=== PATIENT | male | born 1975 | race Caucasian/White ===

== ENCOUNTER 2021-10-17 18:00 | Inpatient (IN) | payer MEDICARE, OTHER ==
[~2021-10-17] VITALS: Ht 167.6 cm; Wt 68.0 kg
[2021-10-17 19:00] VITALS: BP 162/66
[2021-10-17] MEDS ORDERED: PIP/TAZO PER PHARMACY MC PRN (19:45)
--- NOTE | 2021-10-17 19:54 | HP ---
DATE OF SERVICE: 10/17/2021 ADMIT DATE: 10/17/2021 CHIEF COMPLAINT: Fevers and sepsis, UTI. HISTORY OF PRESENT ILLNESS: The patient is a pleasant 46-year-old male who has cerebral palsy. He presented to [facility] with weakness and fevers, was noted to have a UTI with sepsis. They called me. I accepted the patient as a transfer. He is now being examined on the medical floor where we are going to give him IV fluids and antibiotics. PAST MEDICAL HISTORY: Cerebral palsy, spasms and blind. ALLERGIES: None. FAMILY HISTORY: Diabetes. SOCIAL HISTORY: Does not drink, smoke or take drugs. I think he lives at home with his family. MEDICATIONS: Reviewed. Please see the MRAD. REVIEW OF SYSTEMS: GENERAL: He complains of fevers overnight. SKIN: No bruising, hair changes or rashes. EYES: No blurred, double or loss of vision. NOSE AND THROAT: No history of nosebleeds, hoarseness or sore throat. HEART: No history of palpitations, chest pain or shortness of breath on exertion. LUNGS: Denies cough, hemoptysis, wheezing or shortness of breath. GASTROINTESTINAL: Denies changes in appetite, nausea, vomiting, diarrhea or constipation. GENITOURINARY: No history of frequency, urgency, hesitancy or nocturia. NEUROLOGIC: Denies history of numbness, tingling, tremor or weakness. PSYCHIATRIC: No history of panic, anxiety or depression. ENDOCRINE: No history of heat or cold intolerance, polyuria or polydipsia. EXTREMITIES: Denies muscle weakness, joint pain, pain on walking or stiffness. PHYSICAL EXAMINATION: VITALS: Within normal limits and are stable. GENERAL: He is weak. HEENT: He is blind. EYES: Extraocular muscles are intact, pupils are equally round and reactive to light and accommodation MUSCULOSKELETAL: Well developed, well nourished, good range of motion ENDOCRINE: No thyromegaly was palpated LYMPHATICS: No cervical chain or axillary nodes were noted HEMATOPOIETIC: No bruising NECK: Supple, no JVD, no thyromegaly was noted. LUNGS: Clear to auscultation in all lung arthur without rhonchi or wheezing. HEART: RRR, S1, S2 present. Peripheral pulses intact, no obvious murmurs were noted. ABDOMEN: Soft, nontender. Positive bowel sounds no organomegaly, normal bowel sounds. EXTREMITIES: Without any cyanosis, clubbing, or edema. Pedal pulses intact, Homans sign is negative. NEUROLOGIC: He has some contractions consistent with his cerebral palsy. PSYCHIATRIC: Pleasant. SKIN: No ulcerations or rashes, good skin turgor, no jaundice. VASCULAR: Good capillary refill, neurovascular bundle appears to be intact. LABORATORY DATA: Pending. ASSESSMENT AND PLAN: Urinary tract infection with sepsis. The patient will be admitted. We will start IV Zosyn, IV fluids, home meds, DVT prophylaxis. Full code. GILDA DR: Maria A TID: [id number]
[2021-10-17] MEDS: ACETAMINOPHEN 500 MG TABLET PO PRN (21:27)
[2021-10-17] MEDS: PIPERACILLIN/TAZOBACTAM 3.375 GM in IV NORMAL SALINE 50ML 50 ML IV SCH (21:29)
[2021-10-17] MEDS: IV NORMAL SALINE 1000ML BAG 1,000 ML IV SCH (21:36)
[2021-10-17] MEDS ORDERED: ESOM40CA PO (23:02)
[2021-10-17] MEDS ORDERED: POLY17PO29 PO (23:02)
[2021-10-17] MEDS ORDERED: D-MA500C PO (23:02)
[2021-10-17] MEDS ORDERED: ACET325T21 PO (23:02)
[2021-10-17] MEDS ORDERED: DOCU100C28 PO (23:02)
[2021-10-17] MEDS ORDERED: OXYB-36 PO (23:02)
[2021-10-17] MEDS ORDERED: ONDA4TAB12 PO (23:02)
[2021-10-17] MEDS ORDERED: TOLN108P2 TP (23:02)
[2021-10-17] MEDS ORDERED: FURO20TA3 PO (23:02)
[2021-10-17] MEDS ORDERED: PRAV10TA2 PO (23:02)
[2021-10-17] MEDS ORDERED: LOPE2TAB27 PO (23:02)
[2021-10-17] MEDS ORDERED: PHEN32.45 PO (23:09)
[2021-10-17 23:16] VITALS: BP 123/72
[2021-10-18] MEDS: PIPERACILLIN/TAZOBACTAM 3.375 GM in IV NORMAL SALINE 50ML 50 ML IV SCH ×5 (01:41→23:50)
[2021-10-18 03:17] VITALS: BP 127/76
[2021-10-18 07:00] VITALS: BP 126/76
[2021-10-18 07:14] LABS: BASO % 0 % (0-3); EOS % 0 % (0-3); HEMATOCRIT 38.2 % (36.0-47.0); HEMOGLOBIN 12.3 g/dL (12.0-15.5); LYMPH # 1.1 x10^3/uL (1.0-4.8); LYMPH % 9 % (24-48); MEAN CORPUSCULAR HEMOGLOBIN 26 pg (25-35); MEAN CORPUSCULAR HGB CONC 32 g/dL (31-37); MEAN CORPUSCULAR VOLUME 82 fL (79-100); MONO # 1.5 x10^3/uL (0.0-1.1); MONO % 12 % (0-9); NEUT # 10.3 x10^3/uL (1.8-7.7); NEUT % 80 % (31-73); PLATELET COUNT 140 x10^3/uL (140-400); RED BLOOD COUNT 4.69 x10^6/uL (3.50-5.40); RED CELL DISTRIBUTION WIDTH 14.1 % (11.5-14.5); WHITE BLOOD COUNT 12.9 x10^3/uL (4.0-11.0)
[2021-10-18 07:25] LABS: CALCIUM 7.8 mg/dL (8.5-10.1); CREATININE 1.2 mg/dL (0.6-1.0); GFR 48.4; POTASSIUM 3.8 mmol/L (3.5-5.1)
[2021-10-18 10:54] VITALS: BP 131/86
--- NOTE | 2021-10-18 11:21 | PDOC ---
[facility] PROGRESS NOTE Date of Service DOS: DATE: 10/18/21 TIME: 11:18 Chief Complaint Chief Complaint Sepsis Acute UTI History of cerebral palsy History of urinary retention and Adams catheter in the past Continue broad-spectrum IV antibiotics Pending urine culture History of Present Illness History of Present Illness 46-year-old male who has cerebral palsy. He presented to [facility] with weakness and fevers, was noted to have a UTI with sepsis. He is now being examined on the medical floor where we are going to give him IV fluids and antibiotics. 10/18/2021 No acute events overnight. Patient seen and examined bedside. Patient states that he has history of urinary retention which requires a Adams. Sometimes straight cath. Patient had a fever overnight of 102. We will continue with broad-spectrum antibiotics and pending urine culture results. Patient's chart, labs, images were reviewed and discussed with RN Vitals/I&O Vitals/I&O: Vital Signs Date Time Temp Pulse Resp B/P (MAP) Pulse Ox O2 Delivery O2 Flow Rate FiO2 10/18/21 10:54 100.2 103 18 131/86 (101) 97 Room Air 100.2 I & O 10/17/21 10/17/21 10/18/21 15:00 23:00 07:00 Intake Total 50 ml 100 ml Balance 50 ml 100 ml Physical Exam General: Alert, Oriented X3, Cooperative Heart: Regular rate Lungs: Clear Abdomen: Normal bowel sounds Extremities: No clubbing Skin: No rashes Labs Labs: Laboratory Tests Test 10/18/21 06:30 White Blood Count 12.9 x10^3/uL (4.0-11.0) Red Blood Count 4.69 x10^6/uL (3.50-5.40) Hemoglobin 12.3 g/dL (12.0-15.5) Hematocrit 38.2 % (36.0-47.0) Mean Corpuscular Volume 82 fL (79-100) Mean Corpuscular Hemoglobin 26 pg (25-35) Mean Corpuscular Hemoglobin Concent 32 g/dL (31-37) Red Cell Distribution Width 14.1 % (11.5-14.5) Platelet Count 140 x10^3/uL (140-400) Neutrophils (%) (Auto) 80 % (31-73) Lymphocytes (%) (Auto) 9 % (24-48) Monocytes (%) (Auto) 12 % (0-9) Eosinophils (%) (Auto) 0 % (0-3) Basophils (%) (Auto) 0 % (0-3) Neutrophils # (Auto) 10.3 x10^3/uL (1.8-7.7) Lymphocytes # (Auto) 1.1 x10^3/uL (1.0-4.8) Monocytes # (Auto) 1.5 x10^3/uL (0.0-1.1) Eosinophils # (Auto) 0.0 x10^3/uL (0.0-0.7) Basophils # (Auto) 0.0 x10^3/uL (0.0-0.2) Sodium Level 143 mmol/L (136-145) Potassium Level 3.8 mmol/L (3.5-5.1) Chloride Level 108 mmol/L (98-107) Carbon Dioxide Level 23 mmol/L (21-32) Anion Gap 12 (6-14) Blood Urea Nitrogen 15 mg/dL (7-20) Creatinine 1.2 mg/dL (0.6-1.0) Estimated GFR (Cockcroft-Gault) 48.4 Glucose Level 92 mg/dL (70-99) Calcium Level 7.8 mg/dL (8.5-10.1) Comment Review of Relevant I have reviewed the following items fracisco (where applicable) has been applied. Medications: Current Medications Medications (Trade) Dose Ordered Sig/Latha Route PRN Reason Start Time Stop Time Status Last Admin Dose Admin Acetaminophen (Tylenol) 500 mg PRN Q6HRS PRN PO MILD PAIN / TEMP > 100.3'F 10/17/21 19:45 10/17/21 21:27 Sodium Chloride 1,000 ml @ 75 mls/hr [id number] IV 10/17/21 21:00 10/17/21 21:36 Piperacillin Sod/ Tazobactam Sod 3.375 gm/Sodium Chloride 50 ml @ 100 mls/hr Q6HRS IV 10/17/21 20:00 10/18/21 05:50 Justifications for Admission Other Justification SUNIL GLOVER MD Oct 18, 2021 11:21
[2021-10-18] MEDS: IV NORMAL SALINE 1000ML BAG 1,000 ML IV SCH (11:35)
[2021-10-18] MEDS: ACETAMINOPHEN 500 MG TABLET PO PRN ×2 (13:38→20:08)
[2021-10-18 15:00] VITALS: BP 140/89
[2021-10-18 19:35] VITALS: BP 139/85
[2021-10-18] MEDS: LACTOBACILLUS RHAMNOSUS GG 1 CAPSULE. PO SCH (20:55)
[2021-10-18 23:44] VITALS: BP 120/72
[2021-10-19] MEDS: IV NORMAL SALINE 1000ML BAG 1,000 ML IV SCH ×2 (02:00→13:00)
[2021-10-19 03:29] VITALS: BP 151/92
[2021-10-19] MEDS: ACETAMINOPHEN 500 MG TABLET PO PRN (05:33)
[2021-10-19] MEDS: PIPERACILLIN/TAZOBACTAM 3.375 GM in IV NORMAL SALINE 50ML 50 ML IV SCH ×4 (05:35→23:30)
[2021-10-19 06:44] LABS: CALCIUM 7.7 mg/dL (8.5-10.1); GFR 80.4; POTASSIUM 3.7 mmol/L (3.5-5.1)
[2021-10-19 06:54] LABS: BASO % 0 % (0-3); EOS # 0.1 x10^3/uL (0.0-0.7); EOS % 1 % (0-3); HEMATOCRIT 39.7 % (39.0-53.0); HEMOGLOBIN 12.8 g/dL (13.0-17.5); LYMPH # 0.6 x10^3/uL (1.0-4.8); LYMPH % 8 % (24-48); MEAN CORPUSCULAR HEMOGLOBIN 26 pg (25-35); MEAN CORPUSCULAR HGB CONC 32 g/dL (31-37); MEAN CORPUSCULAR VOLUME 81 fL (79-100); MONO # 0.8 x10^3/uL (0.0-1.1); MONO % 10 % (0-9); NEUT # 6.6 x10^3/uL (1.8-7.7); NEUT % 81 % (31-73); PLATELET COUNT 128 x10^3/uL (140-400); WHITE BLOOD COUNT 8.1 x10^3/uL (4.0-11.0)
[2021-10-19 07:00] VITALS: BP 150/85
[2021-10-19] MEDS: LACTOBACILLUS RHAMNOSUS GG 1 CAPSULE. PO SCH ×2 (08:42→20:47)
[2021-10-19 11:00] VITALS: BP 144/72
--- NOTE | 2021-10-19 12:41 | PDOC ---
[facility] PROGRESS NOTE Date of Service DOS: DATE: 10/19/21 TIME: 12:40 Chief Complaint Chief Complaint Sepsis Acute UTI History of cerebral palsy History of urinary retention and Adams catheter in the past Continue broad-spectrum IV antibiotics Pending urine culture History of Present Illness History of Present Illness 46-year-old male who has cerebral palsy. He presented to [facility] with weakness and fevers, was noted to have a UTI with sepsis. He is now being examined on the medical floor where we are going to give him IV fluids and antibiotics. 10/18/2021 No acute events overnight. Patient seen and examined bedside. Patient states that he has history of urinary retention which requires a Adams. Sometimes straight cath. Patient had a fever overnight of 102. We will continue with broad-spectrum antibiotics and pending urine culture results. Patient's chart, labs, images were reviewed and discussed with RN 10/19/2021 No acute events overnight. Patient really wants to go home. Patient seen e xamined bedside. Adams placed with 400 urine output. Fever 100 point 3 in the afternoon yesterday. Pending urine cultures. Continue with IV antibiotics. Patient's chart, labs, images were reviewed and discussed with RN Vitals/I&O Vitals/I&O: Vital Signs Date Time Temp Pulse Resp B/P (MAP) Pulse Ox O2 Delivery O2 Flow Rate FiO2 10/19/21 08:00 Room Air 10/19/21 07:00 99.0 109 20 150/85 (106) 96 99.0 I & O 10/18/21 10/18/21 10/19/21 15:00 23:00 07:00 Intake Total 1025 ml 50 ml 1460 ml Output Total 550 ml Balance 1025 ml 50 ml 910 ml Physical Exam General: Alert, Oriented X3, Cooperative Heart: Regular rate Lungs: Clear Abdomen: Normal bowel sounds Extremities: No clubbing Skin: No rashes Labs Labs: Laboratory Tests Test 10/19/21 06:05 White Blood Count 8.1 x10^3/uL (4.0-11.0) Red Blood Count 4.90 x10^6/uL (4.30-5.70) Hemoglobin 12.8 g/dL (13.0-17.5) Hematocrit 39.7 % (39.0-53.0) Mean Corpuscular Volume 81 fL (79-100) Mean Corpuscular Hemoglobin 26 pg (25-35) Mean Corpuscular Hemoglobin Concent 32 g/dL (31-37) Red Cell Distribution Width 14.0 % (11.5-14.5) Platelet Count 128 x10^3/uL (140-400) Neutrophils (%) (Auto) 81 % (31-73) Lymphocytes (%) (Auto) 8 % (24-48) Monocytes (%) (Auto) 10 % (0-9) Eosinophils (%) (Auto) 1 % (0-3) Basophils (%) (Auto) 0 % (0-3) Neutrophils # (Auto) 6.6 x10^3/uL (1.8-7.7) Lymphocytes # (Auto) 0.6 x10^3/uL (1.0-4.8) Monocytes # (Auto) 0.8 x10^3/uL (0.0-1.1) Eosinophils # (Auto) 0.1 x10^3/uL (0.0-0.7) Basophils # (Auto) 0.0 x10^3/uL (0.0-0.2) Sodium Level 139 mmol/L (136-145) Potassium Level 3.7 mmol/L (3.5-5.1) Chloride Level 106 mmol/L (98-107) Carbon Dioxide Level 21 mmol/L (21-32) Anion Gap 12 (6-14) Blood Urea Nitrogen 10 mg/dL (8-26) Creatinine 1.0 mg/dL (0.7-1.3) Estimated GFR (Cockcroft-Gault) 80.4 Glucose Level 92 mg/dL (70-99) Calcium Level 7.7 mg/dL (8.5-10.1) Comment Review of Relevant I have reviewed the following items fracisco (where applicable) has been applied. Medications: Current Medications Medications (Trade) Dose Ordered Sig/Latha Route PRN Reason Start Time Stop Time Status Last Admin Dose Admin Lactobacillus Rhamnosus (Culturelle) 1 cap BID PO 10/18/21 21:00 10/19/21 08:42 Justifications for Admission Other Justification SUNIL GLOEVR MD Oct 19, 2021 12:41
--- NOTE | 2021-10-19 12:49 | NUR ---
SW following. Discussed with RN, pt from a jail in [place] (Contact Wilma Lokesh [phone]), room air, regular diet, rapid COVID-19 negative. Pt really wanting to return home. RN advised no SW needs at this time. SW will continue to follow.
[2021-10-19 15:00] VITALS: BP 147/96
[2021-10-19 19:56] VITALS: BP 184/95
[2021-10-19 23:43] VITALS: BP 159/90
[2021-10-20 03:17] VITALS: BP 147/88
[2021-10-20] MEDS: IV NORMAL SALINE 1000ML BAG 1,000 ML IV SCH ×2 (05:35→22:22)
[2021-10-20] MEDS: PIPERACILLIN/TAZOBACTAM 3.375 GM in IV NORMAL SALINE 50ML 50 ML IV SCH ×4 (05:35→23:37)
[2021-10-20 07:00] VITALS: BP 165/85
[2021-10-20] MEDS: LACTOBACILLUS RHAMNOSUS GG 1 CAPSULE. PO SCH ×2 (08:54→22:22)
[2021-10-20] MEDS: ACETAMINOPHEN 500 MG TABLET PO PRN (08:58)
[2021-10-20 08:59] LABS: BASO % 1 % (0-3); EOS # 0.2 x10^3/uL (0.0-0.7); EOS % 3 % (0-3); HEMATOCRIT 41.9 % (39.0-53.0); HEMOGLOBIN 13.6 g/dL (13.0-17.5); LYMPH % 20 % (24-48); MEAN CORPUSCULAR HEMOGLOBIN 26 pg (25-35); MEAN CORPUSCULAR HGB CONC 33 g/dL (31-37); MEAN CORPUSCULAR VOLUME 81 fL (79-100); MONO # 0.9 x10^3/uL (0.0-1.1); MONO % 16 % (0-9); NEUT # 3.2 x10^3/uL (1.8-7.7); NEUT % 61 % (31-73); PLATELET COUNT 164 x10^3/uL (140-400); RED BLOOD COUNT 5.15 x10^6/uL (4.30-5.70); RED CELL DISTRIBUTION WIDTH 14.2 % (11.5-14.5); WHITE BLOOD COUNT 5.2 x10^3/uL (4.0-11.0)
[2021-10-20 09:24] LABS: CALCIUM 8.2 mg/dL (8.5-10.1); CREATININE 0.9 mg/dL (0.7-1.3); GFR 90.8; POTASSIUM 3.8 mmol/L (3.5-5.1)
[2021-10-20 11:00] VITALS: BP 147/97
--- NOTE | 2021-10-20 12:15 | PDOC ---
[facility] [facility] PROGRESS NOTE Date of Service DOS: DATE: 10/20/21 TIME: 12:14 Chief Complaint Chief Complaint Sepsis Acute UTI History of cerebral palsy History of urinary retention and Adams catheter in the past Continue broad-spectrum IV antibiotics Pending urine culture History of Present Illness History of Present Illness 46-year-old male who has cerebral palsy. He presented to [facility] with weakness and fevers, was noted to have a UTI with sepsis. He is now being examined on the medical floor where we are going to give him IV fluids and antibiotics. 10/18/2021 No acute events overnight. Patient seen and examined bedside. Patient states that he has history of urinary retention which requires a Adams. Sometimes straight cath. Patient had a fever overnight of 102. We will continue with broad-spectrum antibiotics and pending urine culture results. Patient's chart, labs, images were reviewed and discussed with RN 10/19/2021 No acute events overnight. Patient really wants to go home. Patient seen e xamined bedside. Adams placed with 400 urine output. Fever 100 point 3 in the afternoon yesterday. Pending urine cultures. Continue with IV antibiotics. Patient's chart, labs, images were reviewed and discussed with RN 10/20/2021 No acute events overnight. Patient seen examined bedside. Temperature of 100.6 last night. Still on IV Zosyn. Pending urine culture S&S. Adams catheter placed yesterday for urinary retention. Adequate urine output the last 24 hours of 2 l. Patient's chart, labs, images were reviewed and discussed with RN Vitals/I&O Vitals/I&O: Vital Signs Date Time Temp Pulse Resp B/P (MAP) Pulse Ox O2 Delivery O2 Flow Rate FiO2 10/20/21 07:00 99.1 92 16 165/85 (111) 98 Room Air 99.1 I & O 10/19/21 10/19/21 10/20/21 15:00 23:00 07:00 Intake Total 290 ml 1100 ml Output Total 1850 ml 1550 ml Balance -1560 ml -450 ml Physical Exam General: Alert, Oriented X3, Cooperative Heart: Regular rate Lungs: Clear Abdomen: Normal bowel sounds Extremities: No clubbing Skin: No rashes Labs Labs: Laboratory Tests Test 10/20/21 08:45 White Blood Count 5.2 x10^3/uL (4.0-11.0) Red Blood Count 5.15 x10^6/uL (4.30-5.70) Hemoglobin 13.6 g/dL (13.0-17.5) Hematocrit 41.9 % (39.0-53.0) Mean Corpuscular Volume 81 fL (79-100) Mean Corpuscular Hemoglobin 26 pg (25-35) Mean Corpuscular Hemoglobin Concent 33 g/dL (31-37) Red Cell Distribution Width 14.2 % (11.5-14.5) Platelet Count 164 x10^3/uL (140-400) Neutrophils (%) (Auto) 61 % (31-73) Lymphocytes (%) (Auto) 20 % (24-48) Monocytes (%) (Auto) 16 % (0-9) Eosinophils (%) (Auto) 3 % (0-3) Basophils (%) (Auto) 1 % (0-3) Neutrophils # (Auto) 3.2 x10^3/uL (1.8-7.7) Lymphocytes # (Auto) 1.0 x10^3/uL (1.0-4.8) Monocytes # (Auto) 0.9 x10^3/uL (0.0-1.1) Eosinophils # (Auto) 0.2 x10^3/uL (0.0-0.7) Basophils # (Auto) 0.0 x10^3/uL (0.0-0.2) Sodium Level 135 mmol/L (136-145) Potassium Level 3.8 mmol/L (3.5-5.1) Chloride Level 104 mmol/L (98-107) Carbon Dioxide Level 19 mmol/L (21-32) Anion Gap 12 (6-14) Blood Urea Nitrogen 10 mg/dL (8-26) Creatinine 0.9 mg/dL (0.7-1.3) Estimated GFR (Cockcroft-Gault) 90.8 Glucose Level 115 mg/dL (70-99) Calcium Level 8.2 mg/dL (8.5-10.1) Comment Review of Relevant I have reviewed the following items fracisco (where applicable) has been applied. Justifications for Admission Other Justification SUNIL GLOVER MD Oct 20, 2021 12:15
[2021-10-20 15:00] VITALS: BP 149/86
[2021-10-20 19:00] VITALS: BP 148/78
[2021-10-20] MEDS ORDERED: POLYETHYLENE GLYCOL 3350 17 GM PACKET. PO PRN (20:45)
[2021-10-20] MEDS ORDERED: ONDANSETRON ODT 4 MG TAB.RAPDIS. PO PRN (20:45)
[2021-10-20] MEDS ORDERED: ATORVASTATIN CALCIUM 10 MG TABLET. PO SCH (21:00)
[2021-10-20] MEDS ORDERED: LOPERAMIDE 2 MG CAPSULE PO PRN (21:00)
[2021-10-20] MEDS ORDERED: PHENobarbital 32.4 MG TABLET. PO SCH (21:00)
[2021-10-20 23:00] VITALS: BP 153/107
[2021-10-21 03:00] VITALS: BP 134/91
[2021-10-21] MEDS: IV NORMAL SALINE 1000ML BAG 1,000 ML IV SCH ×2 (04:23→12:24)
[2021-10-21] MEDS: PIPERACILLIN/TAZOBACTAM 3.375 GM in IV NORMAL SALINE 50ML 50 ML IV SCH (05:55)
[2021-10-21 07:00] VITALS: BP 127/82
[2021-10-21] MEDS ORDERED: PANTOPRAZOLE 40 MG TABLET.DR. PO SCH (07:30)
[2021-10-21 08:01] LABS: BASO % 1 % (0-3); EOS # 0.2 x10^3/uL (0.0-0.7); EOS % 5 % (0-3); HEMATOCRIT 41.9 % (39.0-53.0); HEMOGLOBIN 13.8 g/dL (13.0-17.5); LYMPH % 20 % (24-48); MEAN CORPUSCULAR HEMOGLOBIN 27 pg (25-35); MEAN CORPUSCULAR HGB CONC 33 g/dL (31-37); MEAN CORPUSCULAR VOLUME 81 fL (79-100); MONO # 0.9 x10^3/uL (0.0-1.1); MONO % 19 % (0-9); NEUT # 2.7 x10^3/uL (1.8-7.7); NEUT % 55 % (31-73); PLATELET COUNT 186 x10^3/uL (140-400); RED CELL DISTRIBUTION WIDTH 14.4 % (11.5-14.5); WHITE BLOOD COUNT 4.9 x10^3/uL (4.0-11.0)
[2021-10-21 08:22] LABS: CALCIUM 8.2 mg/dL (8.5-10.1); GFR 80.4
[2021-10-21] MEDS: ACETAMINOPHEN 500 MG TABLET PO PRN (08:29)
[2021-10-21] MEDS: LACTOBACILLUS RHAMNOSUS GG 1 CAPSULE. PO SCH (08:30)
[2021-10-21] MEDS ORDERED: OXYBUTYNIN CHLORIDE 5 MG TABLET PO SCH (09:00)
[2021-10-21] MEDS ORDERED: NITR100C6 PO (10:32)
--- NOTE | 2021-10-21 10:34 | PDOC3 ---
[facility]-Discharge Summary Date of Admission: Date of Admission: Oct 17, 2021 Date of Discharge: Date of Discharge: Oct 21, 2021 Admission Diagnosis: Problems: (1) UTI (urinary tract infection) Hospital Course: Hospital Course: Chief Complaint Sepsis Acute UTI History of cerebral palsy History of urinary retention and Adams catheter in the past Continue broad-spectrum IV antibiotics Pending urine culture History of Present Illness History of Present Illness 46-year-old male who has cerebral palsy. He presented to [facility] with weakness and fevers, was noted to have a UTI with sepsis. He is now being examined on the medical floor where we are going to give him IV fluids and antibiotics. 10/18/2021 No acute events overnight. Patient seen and examined bedside. Patient states that he has history of urinary retention which requires a Adams. Sometimes straight cath. Patient had a fever overnight of 102. We will continue with broad-spectrum antibiotics and pending urine culture results. Patient's chart, labs, images were reviewed and discussed with RN 10/19/2021 No acute events overnight. Patient really wants to go home. Patient seen examined bedside. Adams placed with 400 urine output. Fever 100 point 3 in the afternoon yesterday. Pending urine cultures. Continue with IV antibiotics. Patient's chart, labs, images were reviewed and discussed with RN 10/20/2021 No acute events overnight. Patient seen examined bedside. Temperature of 100.6 last night. Still on IV Zosyn. Pending urine culture S&S. Adams catheter placed yesterday for urinary retention. Adequate urine output the last 24 hours of 2 l. Patient's chart, labs, images were reviewed and discussed with RN 10/21 Patient evaluated examined at bedside. Resting in bed no complaints. Switch her antibiotics to oral. Discharge home today. Greater than 30 minutes spent on discharge. 18 minutes advance care planning. Disposition: Disposition/Orders: D/C to Home Activity: Activity: Resume previous activity Diet: Diet: Regular Medications: Home Meds Active Scripts Nitrofurantoin Monohyd/M-Cryst (NITROFURANTOIN MONO-MCR 100 MG) 100 Mg Capsule, 100 MG PO BID for uti for 5 Days, #10 CAP Prov:ENRIQUE CASTILLO MD 10/21/21 Reported Medications Phenobarbital (PHENOBARBITAL) 32.4 Mg Tablet, 162 MG PO HS for seizures, TAB 2/19/22 Polyethylene Glycol 3350 (MIRALAX) 17 Gm Powd.pack, 1 PACKET PO PRN BID PRN for CONSTIPATION for 2 Days, PACKET 0 Refills dissolve in water 10/17/21 Ondansetron (ONDANSETRON ODT) 4 Mg Tab.rapdis, 4 MG PO PRN Q8HRS PRN for NAUSEA/VOMITING, TAB 10/17/21 Loperamide Hcl (LOPERAMIDE) 2 Mg Tablet, 1 TAB PO PRN QID PRN for DIARRHEA for 30 Days, TAB 0 Refills 10/17/21 Acetaminophen (ACETAMINOPHEN) 325 Mg Tablet, 2 TAB PO PRN Q6HRS PRN for pain or fever for 30 Days, #30 TAB 0 Refills 10/17/21 Tolnaftate (TINACTIN) 108 Gm Powder, 1 PIETER TP BID for antifungal between toes for 7 Days, #1 BOTTLE 0 Refills NEEDED 10/17/21 Pravastatin Sodium (PRAVASTATIN SODIUM) 10 Mg Tablet, 1 TAB PO DAILY for high cholesterol, #30 TAB 5 Refills 10/17/21 Oxybutynin Chloride (OXYBUTYNIN CHLORIDE ER) 5 Mg Tab.er.24, 1 TAB PO DAILY for overactive bladder, #30 TAB 5 Refills 10/17/21 D-Mannose (Azo D-Mannose) 500 Mg Capsule, 500 MG PO QID for uti prevention, CAP 10/17/21 Esomeprazole Magnesium (NEXIUM CAPSULE) 40 Mg Capsule.dr, 1 CAP PO DAILY for gerd, #30 CAP 5 Refills 10/17/21 Furosemide (FUROSEMIDE) 20 Mg Tablet, 10 MG PO QMTH for swelling, TAB 10/17/21 Docusate Sodium (DOCUSATE SODIUM) 100 Mg Capsule, 1 CAP PO PRN BID PRN for CONSTIPATION for 7 Days, CAP 0 Refills 10/17/21 Scheduled D-Mannose (Azo D-Mannose), 500 MG PO QID, (Reported) Esomeprazole Magnesium (Nexium Capsule), 1 CAP PO DAILY, (Reported) Furosemide (Furosemide), 10 MG PO QMTH, (Reported) Nitrofurantoin Monohyd/M-Cryst (Nitrofurantoin [place]-Mcr 100 Mg), 100 MG PO BID Oxybutynin Chloride (Oxybutynin Chloride Er), 1 TAB PO DAILY, (Reported) Phenobarbital (Phenobarbital), 162 MG PO HS, (Reported) Pravastatin Sodium (Pravastatin Sodium), 1 TAB PO DAILY, (Reported) Tolnaftate (Tinactin), 1 PIETER TP BID, (Reported) Scheduled PRN Acetaminophen (Acetaminophen), 2 TAB PO PRN Q6HRS PRN for pain or fever, (Reported) Docusate Sodium (Docusate Sodium), 1 CAP PO PRN BID PRN for CONSTIPATION, (Reported) Loperamide Hcl (Loperamide), 1 TAB PO PRN QID PRN for DIARRHEA, (Reported) Ondansetron (Ondansetron Odt), 4 MG PO PRN Q8HRS PRN for NAUSEA/VOMITING, (Reported) Polyethylene Glycol 3350 (Miralax), 1 PACKET PO PRN BID PRN for CONSTIPATION, (Reported) Justicifation of Admission Dx: Justifications for Admission: Justification of Admission Dx: Yes (uti) ENRIQUE CASTILLO MD Oct 21, 2021 10:34
[2021-10-21 11:00] VITALS: BP 122/84
[2021-10-21 11:17] LABS: % BANDS 5 % (0-9); % EOS 5 % (0-5); % LYMPHS 21 % (24-48); % MONOS 16 % (0-10); % SEGS 53 % (35-66); PLT ESTIMATE ADEQUATE (ADEQUATE)
[2021-10-21] MEDS ORDERED: NITROFURANTOIN MONOHYD/M-CRYST 100 MG CAPSULE. PO SCH (11:30)
--- NOTE | 2021-10-21 15:20 | NUR ---
Discharge directions given to patient and Wilma Campa. IV and telemonitor discontinued by this RN. Patient picked up and transferred by facility. Belongings with patient.
[2021-10-22] MEDS ORDERED: FUROSEMIDE 20 MG TABLET PO SCH (09:00)
== END 2021-10-21 15:20 | disposition home or self-care (01) | DRG 872 ==
LOC: 5 SOUTH 18:00 → EDSEX 18:00
PROVIDERS: ADMIT Internal Medicine; ATTEND Internal Medicine
DX: A41.9 Sepsis, unspecified organism (principal); N39.0 Urinary tract infection, site not specified; G80.9 Cerebral palsy, unspecified; H54.7 Unspecified visual loss; Z83.3 Family history of diabetes mellitus; K59.00 Constipation, unspecified; R33.9 Retention of urine, unspecified
CPT/HCPCS: 36415; 80048; 85007; 85025; 87086; J2543; J7030; G0378